=== PATIENT | male | born 1950 | race Caucasian/White ===

== ENCOUNTER 2016-12-11 16:45 | Emergency (ER) | payer BC, MEDICARE, OTHER ==
[~2016-12-11] VITALS: Ht 170.2 cm; Wt 88.0 kg
[~2016-12-11 16:45] MED LIST: BENZ100 PO; OSEL75 PO
[2016-12-11 16:47] VITALS: BP 219/97; PULSE 83; RESP 14; TEMP 98.5; O2SAT 95
[2016-12-11] MEDS ORDERED: cloNIDine HCL 0.1 MG TAB PO ONE (18:30)
[2016-12-11 19:06] LABS: AUTOMATED NEUTROPHIL # 6.7 TH/MM3 (1.8-7.7); BASOPHIL # 0.1 TH/MM3 (0-0.2); BASOPHIL % 0.6 % (0.0-2.0); EOSINOPHIL # 0.3 TH/MM3 (0-0.4); EOSINOPHIL % 3.1 % (0.0-4.0); HEMATOCRIT 42.1 % (39.0-51.0); HEMO FLAGS DIFF FINAL; LYMPH % 11.2 % (9.0-44.0); MEAN CELL VOLUME 88.6 FL (80.0-100.0); MEAN CORPUSCULAR HEMOGLOBIN 30.7 PG (27.0-34.0); MEAN CORPUSCULAR HGB CONC 34.7 % (32.0-36.0); NEUT % 75.1 % (16.0-70.0); PLATELET COUNT 210 TH/MM3 (150-450); RED BLOOD COUNT 4.75 MIL/MM3 (4.50-5.90); RED CELL DISTRIBUTION WIDTH 13.6 % (11.6-17.2); WHITE BLOOD COUNT 8.9 TH/MM3 (4.0-11.0)
[2016-12-11 19:07] VITALS: BP 144/77; PULSE 77; RESP 18; O2SAT 94
[2016-12-11] MEDS ORDERED: LISI-519 PO (19:08)
[2016-12-11] MEDS ORDERED: ASPI1TAB69 PO (19:08)
[2016-12-11] MEDS ORDERED: ATEN25TA PO (19:09)
[2016-12-11] MEDS ORDERED: FENO160T PO (19:30)
[2016-12-11 19:39] LABS: ANION GAP 6 MEQ/L (5-15); AST (GOT) 34 U/L (15-37); BICARBONATE 28.2 MEQ/L (21.0-32.0); BLOOD UREA NITROGEN 10 MG/DL (7-18); CHLORIDE 103 MEQ/L (98-107); GLOMERULAR FILTRATION RATE 65 ML/MIN (>89); POTASSIUM 3.9 MEQ/L (3.5-5.1); SODIUM (NA) 137 MEQ/L (136-145)
--- NOTE | 2016-12-11 19:43 | RADRPT ---
EXAM DATE/TIME: 12/11/2016 18:29 [place] COMPARISON: CHEST PA & LAT, January 07, 2016, 14:02. INDICATIONS : Fever and wheezing. MEDICAL HISTORY : Carcinoma, colon. SURGICAL HISTORY : Port placed. ENCOUNTER: Initial ACUITY: 1 week PAIN SCORE: 0/10 LOCATION: Bilateral chest FINDINGS: Left chest port is stable. Lungs are focally clear. No effusion evident. Cardiomediastinal contours a re satisfactory. CONCLUSION: Stable chest no acute disease Julio C Wilson MD on December 11, 2016 at 19:41 Board Certified Radiologist. This report was verified electronically.
[2016-12-11 19:54] LABS: ALKALINE PHOSPHATASE 78 U/L (45-117); ALT (GPT) 58 U/L (12-78); TOTAL BILIRUBIN ADULT 0.5 MG/DL (0.2-1.0)
[2016-12-11] MEDS ORDERED: AZIT250T3 PO (19:59)
[2016-12-11] MEDS ORDERED: ALBUAER3 INH (19:59)
[2016-12-11] MEDS ORDERED: PROM6.256 PO (19:59)
--- NOTE | 2016-12-11 20:04 | PD ---
HPI Chief Complaint: Respiratory Symptoms Time Seen by Provider: 20:00 Travel History International Travel<30 days: No Contact w/Intl Traveler<30days: No Traveled to known affect area: No History of Present Illness HPI 66-year-old male that presents to the ED for evaluation of cough and cold-like symptoms. Per patient has had cough and cold for the past 5 days to a week. Per patient he actually felt better but for the past 2 days he felt like it's coming back with a vengeance. Per patient he has a lot of cough and runny nose. Congestion as well. He does have a history of colostomy with colostomy bag with this and some abdominal pain which she attributes to the cough. He states that the shortness of breath, more with a cough. The patient his whole family has been sick recently. He did get a flu shot this year. He does state having chills and sweats. Some fevers. has been treating with Mucinex and antihistamines as well as Tylenol with some relief but the symptoms continue. Family is mainly concerned because patient is the only one who has not gotten better and seems to be worsening. He does have a history of influenza pneumonia in the past. PFSH Past Medical History Cancer: Yes (rectal) Cardiovascular Problems: Yes (mi x2) Chemotherapy: Yes Diabetes: Yes Patient Takes Glucophage: Yes Implanted Vascular Access Dvce: Yes Respiratory: Yes (pni) Myocardial Infarction: Yes Radiation Therapy: Yes Past Surgical History Abdominal Surgery: Yes (ostomy) Social History Alcohol Use: Yes (occ) Tobacco Use: No Substance Use: No Allergies-Medications (Allergen,Severity, Reaction): Coded Allergies: Avelox (Unverified Allergy, Severe, 01/07/16) HIVES, DIFFICULTY BREATHING Reported Meds & Prescriptions Reported Meds & Active Scripts Active Promethazine-Codeine Liq 6.25-10 Mg/5 Ml Syrp 5 Ml PO Q6H PRN 7 Days Proair Hfa 8.5 GM Inh (Albuterol Sulfate) 90 Mcg/Act Aer 2 Puff INH Q4-6H PRN 108 mcg/actuation Azithromycin 250 Mg Tab 250 Mg PO DIRECTED Take 2 tabs (500 mg) on day 1 then 1 tab daily x 4 days. Reported Fenofibrate 160 Mg Tab 160 Mg PO DAILY Atenolol 25 Mg Tab 25 Mg PO DAILY Lisinopril 5 Mg Tab 5 Mg PO DAILY Aspirin 81 Mg Tabdr 81 Mg PO DAILY Review of Systems Except as stated in HPI: all other systems reviewed are Neg Physical Exam Narrative GENERAL: Well-nourished, well-developed patient in no apparent distress. SKIN: Warm and dry. HEAD: Atraumatic. Normocephalic. EYES: Pupils equal and round reactive to light and accommodation. No scleral icterus. No injection or drainage. ENT: No nasal bleeding or discharge. Mucous membranes pink and moist. TMs are clear with no sign of infection or perforation. No mastoid tenderness. Ear canals are intact bilaterally. No lymphadenopathy. Nostril mucosa is red and moist with clear mucus noted. No sinus tenderness to palpation noted. Tonsils are not enlarged or swollen. No ulvua Deviation. Tongue is midline. NECK: Trachea midline. No JVD. No meningeal signs noted CARDIOVASCULAR: Regular rate and rhythm. RESPIRATORY: No accessory muscle use. Clear to auscultation. Breath sounds equal bilaterally. GASTROINTESTINAL: Abdomen soft, non-tender, nondistended. Hepatic and splenic margins not palpable. MUSCULOSKELETAL: Extremities without clubbing, cyanosis, or edema. No obvious deformities. NEUROLOGICAL: Awake and alert. No obvious cranial nerve deficits. Motor grossly within normal limits. Five out of 5 muscle strength in the arms and legs. Normal speech. PSYCHIATRIC: Appropriate mood and affect; insight and judgment normal. Data Data Last Documented VS Vital Signs Date Time Temp Pulse Resp B/P Pulse Ox O2 Delivery O2 Flow Rate FiO2 12/11/16 19:07 77 18 144/77 94 Room Air 12/11/16 16:47 98.5 Orders Complete Blood Count With Diff (12/11/16 18:18) Comprehensive Metabolic Panel (12/11/16 18:18) Chest, Single Ap (12/11/16 18:18) Iv Access Insert/Monitor (12/11/16 18:18) Influenzae A/B Antigen (12/11/16 18:18) Lipase (12/11/16 18:18) Clonidine (Catapres) (12/11/16 18:30) Labs Laboratory Tests Test 12/11/16 18:50 White Blood Count 8.9 TH/MM3 Red Blood Count 4.75 MIL/MM3 Hemoglobin 14.6 GM/DL Hematocrit 42.1 % Mean Corpuscular Volume 88.6 FL Mean Corpuscular Hemoglobin 30.7 PG Mean Corpuscular Hemoglobin 34.7 % Concent Red Cell Distribution Width 13.6 % Platelet Count 210 TH/MM3 Mean Platelet Volume 8.6 FL Neutrophils (%) (Auto) 75.1 % Lymphocytes (%) (Auto) 11.2 % Monocytes (%) (Auto) 10.0 % Eosinophils (%) (Auto) 3.1 % Basophils (%) (Auto) 0.6 % Neutrophils # (Auto) 6.7 TH/MM3 Lymphocytes # (Auto) 1.0 TH/MM3 Monocytes # (Auto) 0.9 TH/MM3 Eosinophils # (Auto) 0.3 TH/MM3 Basophils # (Auto) 0.1 TH/MM3 CBC Comment DIFF FINAL Differential Comment Sodium Level 137 MEQ/L Potassium Level 3.9 MEQ/L Chloride Level 103 MEQ/L Carbon Dioxide Level 28.2 MEQ/L Anion Gap 6 MEQ/L Blood Urea Nitrogen 10 MG/DL Creatinine 1.12 MG/DL Estimat Glomerular Filtration 65 ML/MIN Rate Random Glucose 131 MG/DL Calcium Level 8.6 MG/DL Total Bilirubin 0.5 MG/DL Aspartate Amino Transf 34 U/L (AST/SGOT) Alanine Aminotransferase 58 U/L (ALT/SGPT) Alkaline Phosphatase 78 U/L Total Protein 7.7 GM/DL Albumin 3.9 GM/DL Lipase 550 U/L [facility] Medical Decision Making Medical Screen Exam Complete: Yes Emergency Medical Condition: Yes Medical Record Reviewed: Yes Interpretation(s) CBC & BMP Diagram 12/11/16 18:50 influenza negative Last Impressions Chest X-Ray 12/11/16 1818 Signed Impressions: Service Date/Time: November 18:29 - CONCLUSION: Stable chest no acute disease Julio C Wilson MD Lipase in the 500s. LFTs within normal limits. Differential Diagnosis Otitis media versus otitis externa versus bronchitis versus pneumonia versus sinusitis versus URI versus influenza versus acute abdomen versus pancreatitis Narrative Course 66-year-old male that presents to the ED for evaluation of cough and cold-like symptoms. Patient was properly examined and was found to have signs and symptoms consistent appears to be likely bronchitis. Labs and imaging ordered. Labs and imaging were essentially unremarkable other than her elevated lipase with possible mild pancreatitis but unclear. Case discussed in my attending who agrees with plan. Dr. Dixon evaluated the patient with me and agrees with plan. Patient will be treated with Phenergan with codeine, albuterol inhaler, azithromycin. Follow with PCP. Given note for work. See ED worsening symptoms. Diagnosis Primary Impression: Bronchitis Patient Instructions: General Instructions Additional Instructions: Motrin and Tylenol for pain and fever. You can use [id number] antihistamine as well as well as Mucinex as needed for runny nose and congestion. Cough drops for cough as needed. Drink plenty of fluids. Follow-up with PCP. See ED for worsening symptoms. Med/Other Pt SpecificInfo: Prescription(s) given Scripts Promethazine-Codeine Liq 6.25-10 Mg/5 Ml Syrp5 Ml PO Q6H PRN (COUGH AND/OR COLD SYMPTOMS) 7 Days Ref 0 Prov:Elke Dixon MD 12/11/16 Albuterol 8.5 GM Inh (Proair Hfa 8.5 GM Inh)90 Mcg/Act Aer2 Puff INH Q4-6H PRN ( SHORTNESS OF BREATH) #1 INHALER 108 mcg/actuation Prov:Elke Dixon MD 12/11/16 Azithromycin 250 Mg [id number] Mg PO DIRECTED #6 TAB Take 2 tabs (500 mg) on day 1 then 1 tab daily x 4 days. Prov:Elke Dixon MD 12/11/16 Disposition: 01 DISCHARGE HOME Condition: Stable Emil Queen Dec 11, 2016 20:04
--- NOTE | 2016-12-11 20:08 | PD ---
Data Data Last Documented VS Vital Signs Date Time Temp Pulse Resp B/P Pulse Ox O2 Delivery O2 Flow Rate FiO2 12/11/16 19:07 77 18 144/77 94 Room Air 12/11/16 16:47 98.5 Orders Complete Blood Count With Diff (12/11/16 18:18) Comprehensive Metabolic Panel (12/11/16 18:18) Chest, Single Ap (12/11/16 18:18) Iv Access Insert/Monitor (12/11/16 18:18) Influenzae A/B Antigen (12/11/16 18:18) Lipase (12/11/16 18:18) Clonidine (Catapres) (12/11/16 18:30) Labs Laboratory Tests Test 12/11/16 18:50 White Blood Count 8.9 TH/MM3 Red Blood Count 4.75 MIL/MM3 Hemoglobin 14.6 GM/DL Hematocrit 42.1 % Mean Corpuscular Volume 88.6 FL Mean Corpuscular Hemoglobin 30.7 PG Mean Corpuscular Hemoglobin 34.7 % Concent Red Cell Distribution Width 13.6 % Platelet Count 210 TH/MM3 Mean Platelet Volume 8.6 FL Neutrophils (%) (Auto) 75.1 % Lymphocytes (%) (Auto) 11.2 % Monocytes (%) (Auto) 10.0 % Eosinophils (%) (Auto) 3.1 % Basophils (%) (Auto) 0.6 % Neutrophils # (Auto) 6.7 TH/MM3 Lymphocytes # (Auto) 1.0 TH/MM3 Monocytes # (Auto) 0.9 TH/MM3 Eosinophils # (Auto) 0.3 TH/MM3 Basophils # (Auto) 0.1 TH/MM3 CBC Comment DIFF FINAL Differential Comment Sodium Level 137 MEQ/L Potassium Level 3.9 MEQ/L Chloride Level 103 MEQ/L Carbon Dioxide Level 28.2 MEQ/L Anion Gap 6 MEQ/L Blood Urea Nitrogen 10 MG/DL Creatinine 1.12 MG/DL Estimat Glomerular Filtration 65 ML/MIN Rate Random Glucose 131 MG/DL Calcium Level 8.6 MG/DL Total Bilirubin 0.5 MG/DL Aspartate Amino Transf 34 U/L (AST/SGOT) Alanine Aminotransferase 58 U/L (ALT/SGPT) Alkaline Phosphatase 78 U/L Total Protein 7.7 GM/DL Albumin 3.9 GM/DL Lipase 550 U/L [facility] Supervised Visit with BALAJI: Yes Narrative Course The history, exam, and medical decision-making in the associated midlevel provider note were completed with my assistance. I reviewed and agree with the findings presented. I attest that I had a [id number] encounter with the patient on the same day, and personally performed and documented my assessment and findings in the medical record. *My assessment and Findings: This is a 66-year-old male who presents the emergency department with several days of productive cough and nasal congestion. He's been increasingly short of breath. His family was concerned he may have pneumonia. Labs were obtained which were reassuring. Chest x-ray demonstrates no infiltrate. Patient has normal vital signs. I think is appropriate for outpatient symptomatic management for bronchitis. He'll be discharged on an antibiotic, albuterol and a cough suppressant. Diagnosis Primary Impression: Bronchitis Patient Instructions: General Instructions Additional Instruction: Motrin and Tylenol for pain and fever. You can use [id number] antihistamine as well as well as Mucinex as needed for runny nose and congestion. Cough drops for cough as needed. Drink plenty of fluids. Follow-up with PCP. See ED for worsening symptoms. Scripts Promethazine-Codeine Liq 6.25-10 Mg/5 Ml Syrp5 Ml PO Q6H PRN (COUGH AND/OR COLD SYMPTOMS) 7 Days Ref 0 Prov:Elke Dixon MD 12/11/16 Albuterol 8.5 GM Inh (Proair Hfa 8.5 GM Inh)90 Mcg/Act Aer2 Puff INH Q4-6H PRN ( SHORTNESS OF BREATH) #1 INHALER 108 mcg/actuation Prov:Elke Dixon MD 12/11/16 Azithromycin 250 Mg [id number] Mg PO DIRECTED #6 TAB Take 2 tabs (500 mg) on day 1 then 1 tab daily x 4 days. Prov:Elke Dixon MD 12/11/16 Disposition: 01 DISCHARGE HOME Condition: Stable Elke Dixon MD Dec 11, 2016 20:08
== END 2016-12-11 20:17 | disposition home or self-care (01) ==
LOC: NEPE 16:45
DX: J40 Bronchitis, not specified as acute or chronic (principal); R09.81 Nasal congestion; R10.9 Unspecified abdominal pain; R50.9 Fever, unspecified; E11.9 Type 2 diabetes mellitus without complications; I25.2 Old myocardial infarction; Z79.84 Long term (current) use of oral hypoglycemic drugs; Z87.01 Personal history of pneumonia (recurrent); Z85.048 Personal history of other malignant neoplasm of rectum, rectosigmoid junction, and anus
CPT/HCPCS: 71010; 80053; 83690; 85025; 87804; 99283